=== PATIENT | male | born 1980 | race Caucasian/White ===

== ENCOUNTER 2021-11-15 20:27 | Emergency (ER) | payer BC ==
[~2021-11-15 20:27] MED LIST: ASPIRIN EC81 MG PO
[2021-11-15 21:55] LABS: HEMOGLOBIN 16.4 gm/dl (14.0-17.5); RED BLOOD COUNT 5.41 M/UL (4.20-5.50); WHITE BLOOD COUNT 4.2 K/UL (4.5-11.0)
[2021-11-15 22:50] LABS: BUN/CREATININE RATIO 11 (0-10)
== END 2021-11-16 00:52 | disposition home or self-care (01) ==
LOC: ER1 20:27
PROVIDERS: Physician Assistant Medical
DX: I10 Essential (primary) hypertension (principal)
CPT/HCPCS: 71045; 80053; 85025; 93005; 99284